=== PATIENT | male | born 1985 ===

== ENCOUNTER 2016-10-11 10:58 | Observation (INO) | payer BC, OTHER ==
--- NOTE | 2016-10-11 11:09 | ED PDOC ---
Arrival/HPI - General Historian: Patient - History of Present Illness Time/Duration: Other (15 hours) Symptom Onset: Sudden Symptom Course: Improving Quality: Tightness Severity Level: 5 Activities at Onset: Other (sitting down) Context: Home <Daniel Pizano - Last Filed: 10/11/16 14:01> <Diego Carranza - Last Filed: 10/11/16 14:20> - General Chief Complaint: Chest Pain Time Seen by Provider: 10/11/16 11:02 - History of Present Illness Narrative History of Present Illness (Text): 31 M with PMH of anxiety/depression, GERD, PTSD, chronic low back pain, HTN, HLD presents to ED for complaint of chest pain. Patiet states that the pain began around 10-11 pm last night while sitting on his couch. He denies it being associated with food or gas. Patient states that he never had this type of pain before. Patient has been noncompliant with HTN and HLD medications for last two months. He reporst to intermittently taking medications since being diagnosed in 2007. He reports sudden onset. He rates the pain as 5/10 currently and 7/10 at its worst. He describes the pain as intermittent, tightness/discomfort in left side of chest radiating to left arm. Patient took ASA 81 mg last night and this morning which provided some relief. Nothing he notices specifically exacerbates the pain. Admits dizziness, sob, nausea, L sided facial numbness/ tingling and diaphoresis this am. Denies vertigo, fever/chills, syncope, weakness, palpitations, abd pain, vomiting, diarrhea, incontinence. PMD: Dr. Smith PMH: anxiety/depression, GERD, PTSD, chronic low back pain, HTN, HLD Meds: As per EMR Allergy: NKDA PSH: tonsilectomy, Appendectomy, L5-S1 discectomy, epidural Hosp: 06/2016 for psych related issues, 03/2016 and 04/2016 for back pain/ dehydration FH: DM Social: unemployed, disabled , rarely smokes or etoh - monthly at most, denies illict drug use, increased stress from recent miscarriage and 04 of October (Daniel Pizano) Associated Symptoms (Text): left arm pain, numbness/tingling (Daniel Pizano) Past Medical History - Provider Review Nursing Documentation Reviewed: Yes - Travel History Have you recently traveled outside [place] w/in the past 3 mons?: No - Infectious Disease Hx of Infectious Diseases: None - Cardiac Hx Cardiac Disorders: Yes Hx Hypertension: Yes - Pulmonary Hx Respiratory Disorders: No - Neurological Hx Neurological Disorder: No - HEENT Hx HEENT Disorder: No - Renal Hx Renal Disorder: Yes Hx Renal Failure: Yes (was just in hospital last week) - Endocrine/Metabolic Hx Endocrine Disorders: No - Hematological/Oncological Hx Blood Disorders: No - Integumentary Hx Dermatological Disorder: No - Musculoskeletal/Rheumatological Hx Musculoskeletal Disorders: Yes Hx Back Pain: Yes - Gastrointestinal Hx Gastrointestinal Disorders: No - Genitourinary/Gynecological Hx Genitourinary Disorders: No - Psychiatric Hx Substance Use: Yes - Surgical History Other/Comment: back surgery - Anesthesia Hx Anesthesia: Yes Hx Anesthesia Reactions: No <Daniel Pizano - Last Filed: 10/11/16 14:01> Family/Social History - Physician Review Nursing Documentation Reviewed: Yes Family/Social History: Diabetes Smoking Status: Former Smoker Hx Alcohol Use: Yes Hx Substance Use: Yes <Daniel Pizano - Last Filed: 10/11/16 14:01> Allergies/Home Meds <Daniel Pizano - Last Filed: 10/11/16 14:01> <Diego Carranza - Last Filed: 10/11/16 14:20> Allergies/Adverse Reactions: Allergies No Known Allergies Allergy (Verified 06/10/16 00:42) Review of Systems - Review of Systems Constitutional: absent: Fatigue, Weight Change, Fevers, Night Sweats Eyes: absent: Vision Changes, Photophobia, Eye Pain ENT: absent: Hearing Changes, Tinnitus, TMJ Pain, Sore Throat, Rhinorrhea Respiratory: SOB. absent: Cough, Sputum, Wheezing Cardiovascular: Chest Pain. absent: Palpitations, BLAKE, Syncope Gastrointestinal: Nausea. absent: Abdominal Pain, Diarrhea, Vomiting, Hematochezia, Hematemesis Genitourinary Male: absent: Dysuria, Frequency, Hematuria Musculoskeletal: Arthralgias, Back Pain, Myalgias Skin: absent: Rash, Pruritis, Skin Lesions, Laceration Neurological: Dizziness. absent: Headache, Focal Weakness, Seizure Endocrine: Diaphoresis Hemo/Lymphatic: absent: Adenopathy, Easy Bleeding, Easy Bruising Psychiatric: absent: Suicidal Ideation <Daniel Pizano - Last Filed: 10/11/16 14:01> Physical Exam Vital Signs Reviewed: Yes Temperature: Afebrile Blood Pressure: Hypertensive Pulse: Regular Respiratory Rate: Normal Appearance: Positive for: Well-Appearing, Non-Toxic, Comfortable Pain Distress: Mild Mental Status: Positive for: Alert and Oriented X 3 - Systems Exam Head: Present: Atraumatic, Normocephalic Pupils: Present: PERRL Extroacular Muscles: Present: EOMI Conjunctiva: Present: Normal Ears: Present: Normal Mouth: Present: Moist Mucous Membranes Pharnyx: Present: Normal Nose (External): Present: Atraumatic Nose (Internal): Present: Normal Inspection Neck: Present: Normal Range of Motion, Trachea Midline. No: MIDLINE TENDERNESS Respiratory/Chest: Present: Clear to Auscultation, Good Air Exchange. No: Respiratory Distress, Accessory Muscle Use, Wheezes, Rales, Rhonchi Cardiovascular: Present: Regular Rate and Rhythm, Normal S1, S2, Peripheal Pulses Present Abdomen: Present: Normal Bowel Sounds. No: Tenderness, Distention, Peritoneal Signs, Rebound, Guarding Back: Present: Paraspinal Tenderness, Pain with Leg Raise. No: CVA Tenderness Upper Extremity: Present: Normal Inspection, Normal ROM, NORMAL PULSES, Neurovascularly Intact, Capillary Refill < 2s Lower Extremity: Present: Normal Inspection, NORMAL PULSES, Normal ROM, Neurovascularly Intact, Capillary Refill < 2 s Neurological: Present: GCS=15, CN II-XII Intact, Speech Normal, Motor Func Grossly Intact, Normal Cerebellar Funct, Norm Deep Tendon Reflexes Skin: Present: Warm, Dry, Normal Color Lymphatic: No: Cervical Adenopathy, Axillary Adenopathy, Inguinal Adenopathy Psychiatric: Present: Alert, Oriented x 3, Normal Insight, Normal Concentration , Normal Affect, Normal Mood <Daniel Pizano - Last Filed: 10/11/16 14:01> <Diego Carranza - Last Filed: 10/11/16 14:20> Vital Signs Temp Pulse Resp BP Pulse Ox 10/11/16 14:03 70 18 158/109 H 99 10/11/16 12:41 67 18 154/104 H 98 10/11/16 12:39 67 161/117 H 10/11/16 12:27 75 20 161/117 H 100 10/11/16 12:04 68 20 178/124 H 99 10/11/16 11:58 72 178/124 H 10/11/16 10:58 98 F 78 18 180/123 H 99 Medical Decision Making Re-evaluation Time: 12:54 Reassessment Condition: Re-examined, Improved - Lab Interpretations I have reviewed the lab results: Yes Interpretation: Abnormal lab values (lipid panel) - RAD Interpretation Resort Desk Clerk: Radiologist - EKG Interpretation Interpreted by ED Physician: Yes Type: 12 lead EKG Comparison: Com.w/previous EKG <Daniel Pizano - Last Filed: 10/11/16 14:01> <Diego Carranza - Last Filed: 10/11/16 14:20> ED Course and Treatment: CBC, CMP, Cardiac Enzymes, EKG, CXR, HA1C, Lipid panel ordered. Head CT ordered for low suspicion of CVA. Patient was given labetatol 20 mg IVP for bp control. EKG showed no significant change when compared to previous study. Abnormal lab values: triglycerides 458 and cholesterol 242. All other labs no significant change from patient baseline. A second dose of labetalol (40 mg) was given since bp was still elevated. Cardiac enzymes negative x 1. On reevaluation, chest pain has resolved and bp is decreasing. Head CT showed No acute intracranial abnormality. CXR revealed no active disease. Patient will be admitted for telemetry observation. Case was discussed with Dr. Smith, he accepted admission. Resident notified. (Daniel Pizano) Patient Seen With Resident: In agreement with resident note. Patient was seen and evaluated with resident, came up with plan and treatment together. The pt is a 31yo male, presents to Emergency department for evaluation of chest pain. Additional HPI details as noted by resident. On physical exam, pt w/ no acute findings. EKG, CXR, Labs ordered to r/o ACS 10/11/16 12:28 EKG: Normal sinus 70 bpm No change from EKG on 06/09/16 10/11/16 14:19 Case was discussed with Dr. Oneal who will accept the case under his service for telemetry observation for CP r/o ACS. (Rabines,Diego L) - Lab Interpretations Narrative Lab Interpretation (Text): Abnormal lab values: triglycerides 458 and cholesterol 242. All other labs no significant change from patient baseline. (Daniel Pizano) Lab Results: 10/11/16 12:05 10/11/16 12:05 Lab Results 10/11/16 13:00: Urine Color Yellow, Urine Appearance Clear, Urine pH 6.0, Ur Specific [place] 1.025, Urine Protein 100 H, Urine Glucose (UA) Negative, Urine Ketones Negative, Urine Blood Negative, Urine Nitrate Negative, Urine Bilirubin Negative, Urine Urobilinogen 0.2, Ur Leukocyte Esterase Negative, Urine RBC 0 - 2, Urine WBC 0 - 2, Ur Epithelial Cells 0 - 2, Urine Bacteria Few, Hyaline Casts 0 - 2 10/11/16 12:05: Thyroxine (T4) 5.5, TSH 3rd Generation 2.07 10/11/16 12:05: Sodium 139, Potassium 3.9, Chloride 101, Carbon Dioxide 27, Anion Gap 15, BUN 19, Creatinine 1.2, Est GFR ( Amer) > 60, Est GFR (Non- Af Amer) > 60, Random Glucose 86, Calcium 9.1, Phosphorus 4.0, Magnesium 2.1, Total Bilirubin 0.8, AST 22, ALT 35, Alkaline Phosphatase 58, Lactate Dehydrogenase 430, Total Creatine Kinase 119, Troponin I < 0.01, Total Protein 7.4, Albumin 4.3, Globulin 3.2, Albumin/Globulin Ratio 1.3, Triglycerides 458 H , Cholesterol 242 H, LDL Cholesterol Direct 118, HDL Cholesterol 46 10/11/16 12:05: WBC 7.1, RBC 4.57, Hgb 13.3 L, Hct 38.7 L, MCV 84.7, MCH 29.1, MCHC 34.4, RDW 13.2, Plt Count 209, MPV 8.2, Gran % 64.5, Lymph % (Auto) 28.1, [place] % (Auto) 6.0, Eos % (Auto) 1.3 L, Baso % (Auto) 0.1, Gran # 4.59, Lymph # 2.0, [place] # 0.4, Eos # 0.1, Baso # 0.01 - RAD Interpretation Narrative RAD Interpretations (Text): CXR: no active disease. Head CT: No acute intracranial abnormality. If there is a persistent focal neurologic deficit and an ongoing clinical concern for acute infarction, an MRI of the brain without intravenous contrast would be a more sensitive modality for evaluation of hyperacute/acute ischemic infarction. (Daniel Pizano) Radiology Orders: 10/11/16 11:43 HEAD W/O CONTRAST [CT] Stat 10/11/16 11:45 CHEST PORTABLE [RAD] Stat - EKG Interpretation EKG Interpretation (Text): NSR @ 72 bpm. no significant change when compared to previous study. (Daniel Pizano) - Medication Orders Current Medication Orders: Discontinued Medications Labetalol HCl (Trandate) 20 mg IV STAT STA Stop: 10/11/16 11:44 Last Admin: 10/11/16 11:58 Dose: 20 mg Labetalol HCl (Trandate) 40 mg IV STAT STA Stop: 10/11/16 12:32 Last Admin: 10/11/16 12:39 Dose: 40 mg <Daniel Pizano - Last Filed: 10/11/16 14:01> - Scribe Statement The provider has reviewed the documentation as recorded by the Scribe <Diego Carranza - Last Filed: 10/11/16 14:20> - Scribe Statement Raisa Davila Provider Scribe Attestation: All medical record entries made by the Scribe were at my direction and personally dictated by me. I have reviewed the chart and agree that the record accurately reflects my personal performance of the history, physical exam, medical decision making, and the department course for this patient. I have also personally directed, reviewed, and agree with the discharge instructions and disposition. (Diego Carranza) Disposition/Present on Arrival - Present on Arrival Any Indicators Present on Arrival: No History of DVT/PE: No History of Uncontrolled Diabetes: No Urinary Catheter: No History of Decub. Ulcer: No History Surgical Site Infection Following: None - Disposition Have Diagnosis and Disposition been Completed?: Yes Disposition Time: 01:50 Patient Plan: Admission, Telemetry (observation) <Daniel Pizano - Last Filed: 10/11/16 14:01> <Diego Carranza - Last Filed: 10/11/16 14:20> - Disposition Diagnosis: Chest pain Disposition: HOSPITALIZED Patient Problems: Current Active Problems Problem Status Onset Chest pain Acute Condition: FAIR
[2016-10-11 11:12] VITALS: BMI 37.1
[2016-10-11] MEDS ORDERED: Labetalol 5 mg/ml Inj 20ML IV STA ×2 (11:43→12:31)
[2016-10-11 12:16] LABS: BASO # 0.01 K/mm3 (0.0-2.0); BASO % 0.1 % (0.0-3.0); EOS # 0.1 (0.0-0.7); EOS % 1.3 % (1.5-5.0); GRAN # 4.59 (1.4-6.5); GRAN % 64.5 % (50.0-68.0); HEMOGLOBIN 13.3 gm/dL (14.0-18.0); LYMPH % 28.1 % (22.0-35.0); MEAN CELL VOLUME 84.7 fL (80.0-105.0); MEAN CORPUSCULAR HEMOGLOBIN 29.1 pg (25.0-35.0); MEAN CORPUSCULAR HGB CONC 34.4 g/dl (31.0-37.0); MEAN PLATELET VOLUME 8.2 fl (7.0-11.0); MONO # 0.4 (0.1-0.6); PLATELET COUNT 209 10^3/uL (120.0-450.0); RBC 4.57 10^6/uL (3.5-6.1); RED CELL DISTRIBUTION WIDTH 13.2 % (11.5-14.5); WHITE BLOOD COUNT 7.1 10^3/ul (4.5-11.0)
[2016-10-11 12:24] LABS: ALB/GLOB RATIO 1.3 (1.1-1.8); ALBUMIN 4.3 g/dL (3.0-4.8); ALT/SGPT 35 U/L (7-56); AST/SGOT 22 U/L (15-59); BLOOD UREA NITROGEN 19 mg/dL (7-21); CALCIUM 9.1 mg/dL (8.4-10.5); GFR AFRICAN-AMERICAN > 60; GFR NON-AFRICAN AMERICAN > 60; HDL CHOLESTEROL 46 mg/dL (29-60); MAGNESIUM 2.1 mg/dL (1.7-2.2)
[2016-10-11 12:35] LABS: LDL CHOLESTEROL 118 mg/dL (0-129)
[2016-10-11 12:36] LABS: TROPONIN I < 0.01 ng/mL
[2016-10-11 12:39] LABS: T4 5.5 ug/dL (5.5-11.0)
--- NOTE | 2016-10-11 12:48 | CT ---
PROCEDURE: CT HEAD WITHOUT CONTRAST. HISTORY: Dizziness, HTN, facial numbness COMPARISON: None available. TECHNIQUE: Axial computed tomography images were obtained through the head/brain without intravenous contrast. Radiation dose: Total exam DLP = 801.44 mGy-cm. This CT exam was performed using one or more of the following dose reduction techniques: Automated exposure control, adjustment of the mA and/or kV according to patient size, and/or use of iterative reconstruction technique. FINDINGS: HEMORRHAGE: No intracranial hemorrhage. BRAIN: [place]-white matter differentiation is preserved. There is no mass, mass effect or abnormal extra-axial fluid collection. VENTRICLES: The ventricles are normal in size, shape and configuration. CALVARIUM: The skull base and calvarium are normal. PARANASAL SINUSES: Predominantly clear. MASTOID AIR CELLS: Predominantly clear. OTHER FINDINGS: None. IMPRESSION: No acute intracranial abnormality. If there is a persistent focal neurologic deficit and an ongoing clinical concern for acute infarction, an MRI of the brain without intravenous contrast would be a more sensitive modality for evaluation of hyperacute/acute ischemic infarction.
--- NOTE | 2016-10-11 12:58 | RAD ---
HISTORY: sob COMPARISON: 06/09/2016 FINDINGS: LUNGS: No active pulmonary disease. PLEURA: No significant pleural effusion identified, no pneumothorax apparent. CARDIOVASCULAR: Normal. OSSEOUS STRUCTURES: No significant abnormalities. VISUALIZED UPPER ABDOMEN: Normal. OTHER FINDINGS: None. IMPRESSION: No active disease.
[2016-10-11 13:18] LABS: URINE BILIRUBIN NEGATIVE (NEGATIVE); URINE BLOOD NEGATIVE (NEGATIVE); URINE GLUCOSE (UA) NEGATIVE (NEGATIVE); URINE LEUKOCYTE ESTERASE NEGATIVE Leu/uL (NEGATIVE); URINE NITRATE NEGATIVE (NEGATIVE); URINE PROTEIN 100 mg/dL (<30 mg/dL); URINE UROBILINOGEN 0.2 E.U./dL (<1 E.U./dL)
[2016-10-11 13:20] LABS: URINE APPEARANCE CLEAR (CLEAR); URINE COLOR YELLOW (YELLOW)
[2016-10-11 13:32] LABS: URINE BACTERIA FEW (NEG); URINE EPITHELIAL CELLS 0 - 2 /hpf (0-5); URINE HYALINE CAST 0 - 2 /hpf; URINE RBC 0 - 2 /hpf (0-2); URINE WBC 0 - 2 /hpf (0-6)
--- NOTE | 2016-10-11 15:43 | CP.PCM.HP ---
Addendum entered and electronically signed by Fili Bay DO 10/11/16 16:49: Patient to be in observation, discussed with Dr. Dumont. Trops negative thus far. Possible secondary cause for HTN. Workup ordered. Fili Bay D.O. PGY-2 Original Note: <BEBETO DUMONT - Last Filed: 10/11/16 15:49> History of Present Illness - History of Present Illness History of Present Illness: Bebeto Dumont DO PGY1 - Internal Medicine H&P - Dedousis/Adaniel Service CC: Chest pain HPI: 31 yo M with a PMH of HTN, HLD, anxiety/depression, PTSD, migraines GERD, and chronic low back pain presents today for CP, lightheadedness, and left arm numbness. His symptoms started last night while sitting watching TV, CP started first and was associated with lightheadedness and left anterior forearm numbness. His CP lasted 15 minutes and resolved spontanously. He describes it as a stabbing pain from left sternum to left nipple, worsened with deep inspiration. He denies palpitations, diaphoresis, CPOE, headache, N/V, fever chills, abdominal pain, vertigo, syncope, weakness. He checked his BP at the time and it was "210/1-something". He has had this pain before, but this time was worse, and previously was not associated with any other symptoms. Patient admits to noncompliance with his HTN and HLD medications for the past two months , and only intermittently taking them since diagnosis in 2007. He denies any recent trauma or illness, no new foods or medications, and no exacerbating factors. In the ED, EKG showed NSR and no changes compared to an old exam, XR showed no active disease, and head CT showed no acute intracranial abnormality. First troponin was <0.01. In the ED, he was hypertensive and was given labetalol 20mg then 40 minutes later labetalol 40mg. PMHx: HTN, HLD, anxiety/depression, PTSD, migraines, GERD, and chronic low back pain PSHx: Microdiscectomy, tonsillectomy, appendectomy Allergies: NKDA SocHx: Denies etoh; Denies tobacco; Denies illicits FamHx: Mother HTN Meds: Reviewed Present on Admission - Present on Admission Any Indicators Present on Admission: No Review of Systems - Constitutional Constitutional: absent: Chills, Excessive Sweating, Fatigue, Fever, Headache, Weakness - EENT Eyes: absent: Blind Spots, Blurred Vision, Change in Vision Ears: absent: Decreased Hearing, Ear Pain Nose/Mouth/Throat: absent: Epistaxis, Nasal Congestion - Cardiovascular Cardiovascular: absent: Chest Pain, Chest Pain with Activity, Dyspnea on Exertion, Edema, Pain Radiating to Arm/Neck/Jaw, Palpitations, Syncope - Respiratory Respiratory: absent: Cough, Dyspnea, Hemoptysis, Dyspnea on Exertion - Gastrointestinal Gastrointestinal: absent: Abdominal Pain, Diarrhea, Dyspepsia - Genitourinary Genitourinary: absent: Difficulty Urinating, Dysuria - Musculoskeletal Musculoskeletal: absent: Abnormal Gait, Back Pain, Neck Pain, Numbness - Neurological Neurological: absent: Abnormal Gait, Abnormal Speech, Behavioral Changes, Confusion, Dizziness, Numbness, Headaches, Loss of Vision, Memory Loss, Tremor, Vertigo, Weakness - Psychiatric Psychiatric: absent: Anxiety, Behavioral Changes Past Patient History - Infectious Disease Hx of Infectious Diseases: None - Past Social History Smoking Status: Former Smoker - CARDIAC Hx Cardiac Disorders: Yes Hx Hypertension: Yes - PULMONARY Hx Respiratory Disorders: No - NEUROLOGICAL Hx Neurological Disorder: No - HEENT Hx HEENT Problems: No - RENAL Hx Chronic Kidney Disease: Yes Hx Renal Failure: Yes (was just in hospital last week) - ENDOCRINE/METABOLIC Hx Endocrine Disorders: No - HEMATOLOGICAL/ONCOLOGICAL Hx Blood Disorders: No - INTEGUMENTARY Hx Dermatological Problems: No - MUSCULOSKELETAL/RHEUMATOLOGICAL Hx Musculoskeletal Disorders: Yes Hx Back Pain: Yes - GASTROINTESTINAL Hx Gastrointestinal Disorders: No - GENITOURINARY/GYNECOLOGICAL Hx Genitourinary Disorders: No - PSYCHIATRIC Hx Substance Use: Yes - SURGICAL HISTORY Other/Comment: back surgery - ANESTHESIA Hx Anesthesia: Yes Hx Anesthesia Reactions: No Meds Allergies/Adverse Reactions: Allergies Allergy/AdvReac Type Severity Reaction Status Date / Time No Known Allergies Allergy Verified 06/10/16 00:42 Physical Exam - Constitutional Appears: Well, No Acute Distress - Head Exam Head Exam: ATRAUMATIC, NORMOCEPHALIC - Eye Exam Eye Exam: EOMI, Normal appearance, PERRL - ENT Exam ENT Exam: Mucous Membranes Moist - Neck Exam Neck exam: Positive for: Full Rom, Normal Inspection. Negative for: Lymphadenopathy, Meningismus, Thyromegaly - Respiratory Exam Respiratory Exam: Clear to Auscultation Bilateral. absent: Rales, Rhonchi, Wheezes - Cardiovascular Exam Cardiovascular Exam: RRR, +S1, +S2 - GI/Abdominal Exam GI & Abdominal Exam: Normal Bowel Sounds, Soft. absent: Pulsatile Mass, Rebound , Rigid, Tenderness - Extremities Exam Extremities exam: Positive for: full ROM, normal inspection. Negative for: pedal edema, tenderness - Back Exam Back exam: NORMAL INSPECTION - Neurological Exam Neurological exam: Alert, CN II-XII Intact, Oriented x3 - Psychiatric Exam Psychiatric exam: Flat Affect, Normal Mood - Skin Skin Exam: Dry, Intact, Normal Color Results - Vital Signs Recent Vital Signs: Last Vital Signs Temp 98 F 10/11/16 10:58 Pulse 70 10/11/16 14:03 Resp 18 10/11/16 14:03 BP 158/109 H 10/11/16 14:03 Pulse Ox 99 10/11/16 14:03 - Labs Result Diagrams: 10/11/16 12:05 10/11/16 12:05 Assessment & Plan - Assessment and Plan (Free Text) Assessment: 31 yo M with PMH of HTN, HLD, anxiety/depression, PTSD, migraines, GERD, and chronic low back pain, and admits to medication noncompliance with HTN and HLD meds for the past two months. Presents today with left sided CP and left arm numbness last night for 15 minutes. CXR, EKG, Trop, and head CT in the ED negative. Hypertriglyceridemia and hypercholesterolemia on intake lipid panel. Plan: 1. CP - Rule out ACS - EKG in ED showed NSR, no change since last study - CXR in ED showed no active disease - Head CT showed no acute disease - First troponin negative in ED, pending repeat - Admit for observation, start aspirin 2. HTN - Patient admits to medication noncompliance - Given Labetalol 20mg then 40 minutes later 40mg - Start Amlodipine 10mg PO QD, Spironolactone 20mg PO BID, Metoprolol 50mg PO BID - Started workup for secondary causes; TSH and T4 in ED normal, 3. HLD - Patient admits to medication noncompliance - Bloodwork in ED showed triglycerides 458 and total cholesterol 242 - Start Atorvastatin 20mg PO QD 4. History of MDD/MARY JO, PTSD, migraines - Continue home medications Patient was reviewed and discussed with senior resident Dr. Bay PGY2 and attending Dr. Oneal Decision To Admit - Pt Status Changed To: Hospital Disposition Of: Observation - . Bed Request Type: Med/Surg <Brennen Oneal - Last Filed: 10/24/16 17:04> Results - Vital Signs Recent Vital Signs: Last Vital Signs Temp 98.3 F 10/12/16 12:00 Pulse 59 L 10/12/16 12:00 Resp 20 10/12/16 12:00 BP 160/100 H 10/12/16 13:47 Pulse Ox 97 10/12/16 06:00 - Labs Result Diagrams: 10/12/16 07:05 10/12/16 07:05 Attending/Attestation - Attestation I have personally seen and examined this patient.: Yes I have fully participated in the care of the patient.: Yes I have reviewed all pertinent clinical information: Yes Notes (Text): 10/24/16 17:04 Medical record note made by the resident after discussion with my direction and input after the patient was personally seen and examined by me. I have reviewed the chart and agree that the record accurately reflects by personal performance of the history, physical exam, data review, and medical decision-making, in the course for the patient. I have also personally directed the plan of care.
[2016-10-11] MEDS: Metoprolol Succinate 50 mg XL Tab PO SCH (17:14)
[2016-10-12 06:08] VITALS: TEMP 98.3; O2SAT 97
[2016-10-12 07:27] LABS: BASO # 0.01 K/mm3 (0.0-2.0); BASO % 0.1 % (0.0-3.0); EOS # 0.1 (0.0-0.7); EOS % 1.4 % (1.5-5.0); GRAN # 5.17 (1.4-6.5); GRAN % 64.8 % (50.0-68.0); HEMOGLOBIN 14.1 gm/dL (14.0-18.0); LYMPH # 2.2 (1.2-3.4); LYMPH % 27.9 % (22.0-35.0); MEAN CELL VOLUME 86.6 fL (80.0-105.0); MEAN CORPUSCULAR HEMOGLOBIN 29.4 pg (25.0-35.0); MEAN PLATELET VOLUME 8.6 fl (7.0-11.0); MONO # 0.5 (0.1-0.6); MONO % 5.8 % (1.0-6.0); PLATELET COUNT 216 10^3/uL (120.0-450.0); RBC 4.79 10^6/uL (3.5-6.1); RED CELL DISTRIBUTION WIDTH 13.6 % (11.5-14.5)
[2016-10-12 07:43] LABS: ALB/GLOB RATIO 1.3 (1.1-1.8); ALBUMIN 4.4 g/dL (3.0-4.8); ALT/SGPT 37 U/L (7-56); AST/SGOT 20 U/L (15-59); BLOOD UREA NITROGEN 19 mg/dL (7-21); CALCIUM 9.2 mg/dL (8.4-10.5); GFR AFRICAN-AMERICAN > 60; GFR NON-AFRICAN AMERICAN > 60
[2016-10-12] MEDS: Metoprolol Succinate 50 mg XL Tab PO SCH (09:50)
[2016-10-12 12:05] VITALS: PULSE 59; RESP 20
--- NOTE | 2016-10-12 13:46 | CP.PCM.DIS ---
Addendum entered and electronically signed by Fili Bay DO 10/12/16 14:42: Patient was seen and examined and case was discussed at length with Dr. Alexander. Re-enforced to patient to importance of compliance and how this will lead to optimum health. Patient to see us in the clinic in 2 weeks time, on a . Patient verbalized understanding and agreement to the aforementioned plan and states he will be complaint with his BP meds. Fili Bay D.O. PGY-2 Original Note: <SANTOS ALEXANDER - Last Filed: 10/12/16 14:10> Provider - Provider Date of Admission: 10/11/16 13:38 Attending physician: Good Sandres MD Primary care physician: Dr. Oneal Consults: Cardio: Renny Time Spent in preparation of Discharge (in minutes): 45 Diagnosis - Discharge Diagnosis (1) Chest pain Status: Acute Priority: High (2) Hypertension Status: Chronic Priority: High (3) Hypercholesterolemia Status: Chronic Priority: Medium (4) PTSD (post-traumatic stress disorder) Status: Chronic Priority: Low Hospital Course - Lab Results Lab Results: Most Recent Lab Values WBC 8.0 10^3/ul (4.5-11.0) 10/12/16 07:05 RBC 4.79 10^6/uL (3.5-6.1) 10/12/16 07:05 Hgb 14.1 gm/dL (14.0-18.0) 10/12/16 07:05 Hct 41.5 % (42.0-52.0) L 10/12/16 07:05 MCV 86.6 fL (80.0-105.0) 10/12/16 07:05 MCH 29.4 pg (25.0-35.0) 10/12/16 07:05 MCHC 34.0 g/dl (31.0-37.0) 10/12/16 07:05 RDW 13.6 % (11.5-14.5) 10/12/16 07:05 Plt Count 216 10^3/uL (120.0-450.0) 10/12/16 07:05 MPV 8.6 fl (7.0-11.0) 10/12/16 07:05 Gran % 64.8 % (50.0-68.0) 10/12/16 07:05 Lymph % (Auto) 27.9 % (22.0-35.0) 10/12/16 07:05 [place] % (Auto) 5.8 % (1.0-6.0) 10/12/16 07:05 Eos % (Auto) 1.4 % (1.5-5.0) L 10/12/16 07:05 Baso % (Auto) 0.1 % (0.0-3.0) 10/12/16 07:05 Gran # 5.17 (1.4-6.5) 10/12/16 07:05 Lymph # 2.2 (1.2-3.4) 10/12/16 07:05 [place] # 0.5 (0.1-0.6) 10/12/16 07:05 Eos # 0.1 (0.0-0.7) 10/12/16 07:05 Baso # 0.01 K/mm3 (0.0-2.0) 10/12/16 07:05 Sodium 140 mmol/L (132-148) 10/12/16 07:05 Potassium 4.2 mmol/L (3.6-5.0) 10/12/16 07:05 Chloride 102 mmol/L (98-107) 10/12/16 07:05 Carbon Dioxide 27 mmol/L (21-33) 10/12/16 07:05 Anion Gap 15 (10-20) 10/12/16 07:05 BUN 19 mg/dL (7-21) 10/12/16 07:05 Creatinine 1.3 mg/dL (0.5-1.4) 10/12/16 07:05 Est GFR ( Amer) > 60 10/12/16 07:05 Est GFR (Non-Af Amer) > 60 10/12/16 07:05 Random Glucose 95 mg/dL (70-110) 10/12/16 07:05 Hemoglobin A1c 5.3 % (4.2-6.5) 10/11/16 12:00 Calcium 9.2 mg/dL (8.4-10.5) 10/12/16 07:05 Phosphorus 4.0 mg/dL (2.5-4.5) 10/11/16 12:05 Magnesium 2.1 mg/dL (1.7-2.2) 10/11/16 12:05 Total Bilirubin 1.1 mg/dL (0.2-1.3) 10/12/16 07:05 AST 20 U/L (15-59) 10/12/16 07:05 ALT 37 U/L (7-56) 10/12/16 07:05 Alkaline Phosphatase 55 U/L (38-133) 10/12/16 07:05 Lactate Dehydrogenase 430 U/L (333-699) 10/11/16 12:05 Total Creatine Kinase 119 U/L (35-230) 10/11/16 12:05 Troponin I < 0.01 ng/mL 10/12/16 02:01 Total Protein 7.7 g/dL (5.8-8.3) 10/12/16 07:05 Albumin 4.4 g/dL (3.0-4.8) 10/12/16 07:05 Globulin 3.3 gm/dL 10/12/16 07:05 Albumin/Globulin Ratio 1.3 (1.1-1.8) 10/12/16 07:05 Triglycerides 458 mg/dL (35-160) H 10/11/16 12:05 Cholesterol 242 mg/dL (130-200) H 10/11/16 12:05 LDL Cholesterol Direct 118 mg/dL (0-129) 10/11/16 12:05 HDL Cholesterol 46 mg/dL (29-60) 10/11/16 12:05 Thyroxine (T4) 5.5 ug/dL (5.5-11.0) 10/11/16 12:05 TSH 3rd Generation 2.07 mIU/mL (0.46-4.68) 10/11/16 12:05 Urine Color Yellow (YELLOW) 10/11/16 13:00 Urine Appearance Clear (CLEAR) 10/11/16 13:00 Urine pH 6.0 (4.7-8.0) 10/11/16 13:00 Ur Specific [place] 1.025 (1.005-1.035) 10/11/16 13:00 Urine Protein 100 mg/dL (<30 mg/dL) H 10/11/16 13:00 Urine Glucose (UA) Negative mg/dL (NEGATIVE) 10/11/16 13:00 Urine Ketones Negative mg/dL (NEGATIVE) 10/11/16 13:00 Urine Blood Negative (NEGATIVE) 10/11/16 13:00 Urine Nitrate Negative (NEGATIVE) 10/11/16 13:00 Urine Bilirubin Negative (NEGATIVE) 10/11/16 13:00 Urine Urobilinogen 0.2 E.U./dL (<1 E.U./dL) 10/11/16 13:00 Ur Leukocyte Esterase Negative [place]/uL (NEGATIVE) 10/11/16 13:00 Urine RBC 0 - 2 /hpf (0-2) 10/11/16 13:00 Urine WBC 0 - 2 /hpf (0-6) 10/11/16 13:00 Ur Epithelial Cells 0 - 2 /hpf (0-5) 10/11/16 13:00 Urine Bacteria Few (NEG) 10/11/16 13:00 Hyaline Casts 0 - 2 /hpf 10/11/16 13:00 - Hospital Course Hospital Course: 31 yo M with a PMH of HTN, HLD, anxiety/depression, PTSD, migraines GERD, and chronic low back pain who initially presented to [facility] for CP, lightheadedness, and left arm numbness the prior night, and in the ED was complaining of lightheadedness. In the ED, EKG showed NSR and no changes compared to an old exam, XR showed no active disease, and head CT showed no acute intracranial abnormality. Repeat troponins were <0.01. In the ED, he was also hypertensive, and admitted to noncompliance with his HTN and HLD medications for the past two months. He was given labetalol 20mg then 40 minutes later 40mg, then placed on observation. He was then started on his prior home medications for HTN and hyperlipidemia, in addition to atorvastatin 20mg PO QD. Today, his blood pressure is improved, though still elevated. He denies any CP, SOB, headache, vision changes, abdominal pain, or focal numbness or weakness. Medication compliance was discussed at length and it was stressed that he should not skip any of his prescribed medications. All questions were answered to his satisfaction, and he was encouraged to go Dr. Oneal's office next week . Patient was reviewed and discussed with senior resident Dr. Bay PGY2 and attending Dr. Oneal Discharge Exam - Head Exam Head Exam: ATRAUMATIC, NORMOCEPHALIC - Eye Exam Eye Exam: EOMI, Normal appearance - ENT Exam ENT Exam: Mucous Membranes Moist - Neck Exam Neck exam: Normal Inspection - Respiratory Exam Respiratory Exam: Clear to PA & Lateral. absent: Rales, Rhonchi, Wheezes - Cardiovascular Exam Cardiovascular Exam: RRR, +S1, +S2 - GI/Abdominal Exam GI & Abdominal Exam: Normal Bowel Sounds. absent: Pulsatile Mass - Extremities Exam Extremities exam: normal inspection - Neurological Exam Neurological exam: Alert, Oriented x3 - Psychiatric Exam Psychiatric exam: Flat Affect, Normal Mood - Skin Skin Exam: Dry, Intact Discharge Plan - Discharge Medications Prescriptions: amLODIPine [Norvasc] 10 mg PO DAILY #14 tab Atorvastatin [Lipitor] 20 mg PO DIN 14 Days Cholecalciferol [Vitamin D 1000 IU] 1,000 iu PO DAILY #14 tab Fenofibrate [Tricor] 145 mg PO DAILY #14 tab Metoprolol Succinate 50 mg PO BID #28 ter Spironolactone [Aldactone] 25 mg PO BID #28 tab - Follow Up Plan Condition: FAIR Disposition: HOME/ ROUTINE Instructions: Chest Pain (DC), Chest Pain (GEN), Chronic Hypertension (DC) Additional Instructions: 1. Make sure to take all medications as prescribed, and do not skip any doses; prescriptions sent to [facility] pharmacy 2. Follow up in Dr. Oneal's office next week 3. For any new or worsening symptoms or concerns, contact Dr. Oneal immediately or return to the ER <Brennen Oneal - Last Filed: 10/24/16 17:07> Provider - Provider Date of Admission: 10/11/16 13:38 Attending physician: Good Sanders MD Hospital Course - Lab Results Lab Results: Most Recent Lab Values WBC 8.0 10^3/ul (4.5-11.0) 10/12/16 07:05 RBC 4.79 10^6/uL (3.5-6.1) 10/12/16 07:05 Hgb 14.1 gm/dL (14.0-18.0) 10/12/16 07:05 Hct 41.5 % (42.0-52.0) L 10/12/16 07:05 MCV 86.6 fL (80.0-105.0) 10/12/16 07:05 MCH 29.4 pg (25.0-35.0) 10/12/16 07:05 MCHC 34.0 g/dl (31.0-37.0) 10/12/16 07:05 RDW 13.6 % (11.5-14.5) 10/12/16 07:05 Plt Count 216 10^3/uL (120.0-450.0) 10/12/16 07:05 MPV 8.6 fl (7.0-11.0) 10/12/16 07:05 Gran % 64.8 % (50.0-68.0) 10/12/16 07:05 Lymph % (Auto) 27.9 % (22.0-35.0) 10/12/16 07:05 [place] % (Auto) 5.8 % (1.0-6.0) 10/12/16 07:05 Eos % (Auto) 1.4 % (1.5-5.0) L 10/12/16 07:05 Baso % (Auto) 0.1 % (0.0-3.0) 10/12/16 07:05 Gran # 5.17 (1.4-6.5) 10/12/16 07:05 Lymph # 2.2 (1.2-3.4) 10/12/16 07:05 [place] # 0.5 (0.1-0.6) 10/12/16 07:05 Eos # 0.1 (0.0-0.7) 10/12/16 07:05 Baso # 0.01 K/mm3 (0.0-2.0) 10/12/16 07:05 Sodium 140 mmol/L (132-148) 10/12/16 07:05 Potassium 4.2 mmol/L (3.6-5.0) 10/12/16 07:05 Chloride 102 mmol/L (98-107) 10/12/16 07:05 Carbon Dioxide 27 mmol/L (21-33) 10/12/16 07:05 Anion Gap 15 (10-20) 10/12/16 07:05 BUN 19 mg/dL (7-21) 10/12/16 07:05 Creatinine 1.3 mg/dL (0.5-1.4) 10/12/16 07:05 Est GFR ( Amer) > 60 10/12/16 07:05 Est GFR (Non-Af Amer) > 60 10/12/16 07:05 Random Glucose 95 mg/dL (70-110) 10/12/16 07:05 Hemoglobin A1c 5.3 % (4.2-6.5) 10/11/16 12:00 Calcium 9.2 mg/dL (8.4-10.5) 10/12/16 07:05 Phosphorus 4.0 mg/dL (2.5-4.5) 10/11/16 12:05 Magnesium 2.1 mg/dL (1.7-2.2) 10/11/16 12:05 Total Bilirubin 1.1 mg/dL (0.2-1.3) 10/12/16 07:05 AST 20 U/L (15-59) 10/12/16 07:05 ALT 37 U/L (7-56) 10/12/16 07:05 Alkaline Phosphatase 55 U/L (38-133) 10/12/16 07:05 Lactate Dehydrogenase 430 U/L (333-699) 10/11/16 12:05 Total Creatine Kinase 119 U/L (35-230) 10/11/16 12:05 Troponin I < 0.01 ng/mL 10/12/16 02:01 Total Protein 7.7 g/dL (5.8-8.3) 10/12/16 07:05 Albumin 4.4 g/dL (3.0-4.8) 10/12/16 07:05 Globulin 3.3 gm/dL 10/12/16 07:05 Albumin/Globulin Ratio 1.3 (1.1-1.8) 10/12/16 07:05 Triglycerides 458 mg/dL (35-160) H 10/11/16 12:05 Cholesterol 242 mg/dL (130-200) H 10/11/16 12:05 LDL Cholesterol Direct 118 mg/dL (0-129) 10/11/16 12:05 HDL Cholesterol 46 mg/dL (29-60) 10/11/16 12:05 Thyroxine (T4) 5.5 ug/dL (5.5-11.0) 10/11/16 12:05 TSH 3rd Generation 2.07 mIU/mL (0.46-4.68) 10/11/16 12:05 Urine Color Yellow (YELLOW) 10/11/16 13:00 Urine Appearance Clear (CLEAR) 10/11/16 13:00 Urine pH 6.0 (4.7-8.0) 10/11/16 13:00 Ur Specific [place] 1.025 (1.005-1.035) 10/11/16 13:00 Urine Protein 100 mg/dL (<30 mg/dL) H 10/11/16 13:00 Urine Glucose (UA) Negative mg/dL (NEGATIVE) 10/11/16 13:00 Urine Ketones Negative mg/dL (NEGATIVE) 10/11/16 13:00 Urine Blood Negative (NEGATIVE) 10/11/16 13:00 Urine Nitrate Negative (NEGATIVE) 10/11/16 13:00 Urine Bilirubin Negative (NEGATIVE) 10/11/16 13:00 Urine Urobilinogen 0.2 E.U./dL (<1 E.U./dL) 10/11/16 13:00 Ur Leukocyte Esterase Negative [place]/uL (NEGATIVE) 10/11/16 13:00 Urine RBC 0 - 2 /hpf (0-2) 10/11/16 13:00 Urine WBC 0 - 2 /hpf (0-6) 10/11/16 13:00 Ur Epithelial Cells 0 - 2 /hpf (0-5) 10/11/16 13:00 Urine Bacteria Few (NEG) 10/11/16 13:00 Hyaline Casts 0 - 2 /hpf 10/11/16 13:00 Attending/Attestation - Attestation I have personally seen and examined this patient.: Yes I have fully participated in the care of the patient.: Yes I have reviewed all pertinent clinical information, including history, physical exam and plan: Yes Notes (Text): 10/24/16 17:07 Medical record note made by the resident after discussion with my direction and input after the patient was personally seen and examined by me. I have reviewed the chart and agree that the record accurately reflects by personal performance of the history, physical exam, data review, and medical decision-making, in the course for the patient. I have also personally directed the plan of care.
[2016-10-12 14:02] VITALS: BP 160/100
--- NOTE | 2016-10-12 16:46 | CARD ---
APPROVED REPORT EKG Measurement Heart [id number] <Conclusion> Normal sinus rhythm Pulmonary disease pattern Left anterior fascicular block Minimal voltage criteria for LVH, may be normal variant Septal infarct, age undetermined Abnormal ECG
--- NOTE | 2016-10-12 18:48 | US ---
PROCEDURE: Bilateral renal artery duplex ultrasound. CLINICAL HISTORY: Renal artery stenosis. Uncontrolled hypertension. Evaluate for renovascular hypertension. PHYSICIAN(S): Robert Holland M.D. TECHNIQUE: Duplex sonography with color-flow Doppler was used to evaluate the visualized segments of the main renal arteries. The patient was evaluated in a fasting state. Imaging in a supine and decubitus position was performed. Limited evaluation of the arcuate waveforms and resistive indices were performed. FINDINGS: The overall quality of the study is adequate. The kidneys are normal in size, shape, and location. The right kidney measures 11.6cm in length and the left kidney measures 11.1cm in length. No solid renal masses, abnormal calcifications, or hydronephrosis is seen. The main right renal artery is well visualized from the aorta to the hilum. The peak systolic velocity in the right main renal artery is 76 cm/sec. This is consistent with a 0 to 49% stenosis in the main right renal artery. The arcuate waveforms are normal. The resistive index is normal. The main left renal artery is also fairly well seen from its origin to the renal hilum. The peak systolic velocity in the main left renal artery is 71cm/sec. This corresponds to a 0 to 49% stenosis in the main left renal artery. The arcuate waveforms and resistive indices are normal. IMPRESSION: 1. The main renal arteries are well visualized. 2. No sonographically significant stenosis is identified. 3. The kidneys are normal and symmetric in size. There are no solid renal masses, abnormal calcifications or hydronephrosis noted.
== END 2016-10-12 16:10 | disposition home or self-care (01) ==
LOC: ED 10:58 → ERH 13:38 → 2RNO 16:14
PROVIDERS: ADMIT Internal Medicine; ATTEND Internal Medicine
DX: R07.89 Other chest pain (principal); E78.00 Pure hypercholesterolemia, unspecified; F43.10 Post-traumatic stress disorder, unspecified; K21.9 Gastro-esophageal reflux disease without esophagitis; F32.9 Major depressive disorder, single episode, unspecified; G43.909 Migraine, unspecified, not intractable, without status migrainosus; F41.9 Anxiety disorder, unspecified; I12.9 Hypertensive chronic kidney disease with stage 1 through stage 4 chronic kidney disease, or unspecified chronic kidney disease; N18.9 Chronic kidney disease, unspecified; E78.5 Hyperlipidemia, unspecified; R42 Dizziness and giddiness; M54.5 Low back pain; G89.29 Other chronic pain; Z91.14 Patient's other noncompliance with medication regimen
CPT/HCPCS: 36415; 70450; 71010; 80053; 80061; 81001; 82550; 83036; 83615; 83735; 84100; 84436; 84443; 84484; 85025; 93005; 93975; 99285; G0378